=== PATIENT | male | born 1945 | race Caucasian/White ===

== ENCOUNTER 2020-12-09 11:31 | Inpatient (IN) | payer OTHER, MEDICARE ==
[~2020-12-09] VITALS: Ht 185.4 cm; Wt 109.0 kg
[~2020-12-09 11:31] MED LIST: ANTIVERT25 MG PO; ATORVASTATIN CA80 MG PO; DOFETILIDE125 MCG PO; ELIQUIS5 MG PO; ISOSORBIDE MONO60 MG PO; LANTUS **100 UNITS/ SC; LASIX40 MG PO; LOPRESSOR50 MG PO; NITROQUIK SL0.4 MG SL; NOVOLOG VI100 UNIT/1 SC; PLAVIX75 MG PO; TYLENOL #31 EACH PO; ULTRAM50 MG PO; VALSARTAN160 MG PO
[2020-12-09 12:17] LABS: BASOPHIL 0.3 % (0-2); EOSINOPHIL 0.6 % (0-7); HCT 35.8 % (42.0-52.0); HGB 11.6 g/dl (13.2-18.0); LYMPHOCYTE 15.5 % (15-48); MCH 28.8 pg (25.0-31.0); MCHC 32.4 g/dL (32.0-36.0); MCV 88.8 fL (78.0-100.0); MONOCYTE 5.7 % (0-12); MPV 10.7 fL (6.0-9.5); NEUTROPHIL 77.4 % (41-80); NRBC 0; PLT 302 K/uL (150-400); RBC 4.03 M/uL (4.70-6.00); RDW 14.5 % (11.5-14.0); WBC 15.3 K/uL (4.0-10.5)
[2020-12-09 12:36] LABS: ALBUMIN 2.3 g/dL (3.4-5.0); BILIRUBIN - TOTAL 0.8 mg/dL (0.2-1.0); BUN/CREAT RATIO (CALC) 11.7 RATIO; CREATININE 1.45 mg/dL (0.67-1.17); GLOBULIN (CALCULATION) 4.3 g/dL; POTASSIUM 3.8 mmol/L (3.5-5.1); TOTAL PROTEIN 6.6 g/dL (6.4-8.2)
[2020-12-09 17:16] LABS: BILIRUBIN NEGATIVE (NEGATIVE); BLOOD TRACE-INTACT Ery/uL (NEGATIVE); CLARITY CLEAR (CLEAR); COLOR YELLOW (YELLOW); GLUCOSE (U) 1+ mg/dL (NORMAL); LEUKOCYTES NEGATIVE Leu/uL (NEGATIVE); NITRITE NEGATIVE (NEGATIVE); PROTEIN TRACE (LOW) mg/dL (NEGATIVE); SPECIFIC GRAVITY 1.015 (1.001-1.030); UROBILINOGEN 0.2 mg/dL (0.2-1.0)
[2020-12-09 17:22] LABS: SQUAMOUS EPITHELIAL CELLS RARE; URINARY WBC RARE
[2020-12-09] MEDS ORDERED: SYNTHROID75 MCG PO (18:14)
[2020-12-09] MEDS ORDERED: ISOSORBIDE MONO60 MG PO (18:15)
[2020-12-09] MEDS ORDERED: CLARITIN10 MG PO (18:15)
[2020-12-10 04:38] LABS: BASOPHIL 0.5 % (0-2); EOSINOPHIL 1.4 % (0-7); HCT 31.9 % (42.0-52.0); HGB 10.2 g/dl (13.2-18.0); LYMPHOCYTE 21.1 % (15-48); MCH 28.6 pg (25.0-31.0); MCV 89.4 fL (78.0-100.0); MONOCYTE 7.1 % (0-12); MPV 10.3 fL (6.0-9.5); NEUTROPHIL 69.2 % (41-80); NRBC 0; PLT 257 K/uL (150-400); RBC 3.57 M/uL (4.70-6.00); RDW 14.5 % (11.5-14.0); WBC 13.2 K/uL (4.0-10.5)
[2020-12-10 04:57] LABS: BUN 15 mg/dL (7-18); BUN/CREAT RATIO (CALC) 10.4 RATIO; C-REACTIVE PROTEIN >18.00 mg/dL (<=0.90); CHLORIDE 106 mmol/L (98-107); CO2 (BICARBONATE) 29 mmol/L (21-32); CREATININE 1.44 mg/dL (0.67-1.17); GLUCOSE 117 mg/dL (74-106); POTASSIUM 3.3 mmol/L (3.5-5.1)
--- NOTE | 2020-12-10 06:39 | NUR ---
PTS WOUND DRESSING WAS FALLING OFF; CLEANSED AREA WITH BETADINE & RE-WRAPPED WITH CURLEX & ROSLYN. PT REPORTS AREA RELIEVED TO A SMALL DEGREE WITH LORTAB & RE-DRESSING. MONITORING. PAIN WAS 9/10 PRIOR.
[2020-12-10 10:46] LABS: BILIRUBIN NEGATIVE (NEGATIVE); BLOOD 2+ Ery/uL (NEGATIVE); CLARITY CLEAR (CLEAR); COLOR YELLOW (YELLOW); GLUCOSE (U) NORMAL (NORMAL); LEUKOCYTES NEGATIVE Leu/uL (NEGATIVE); NITRITE NEGATIVE (NEGATIVE); PROTEIN NEGATIVE (NEGATIVE); UROBILINOGEN 0.2 mg/dL (0.2-1.0)
[2020-12-10 10:53] LABS: BACTERIA TRACE
[2020-12-12 06:53] LABS: BASOPHIL 0.6 % (0-2); EOSINOPHIL 4.2 % (0-7); HCT 32.6 % (42.0-52.0); HGB 10.4 g/dl (13.2-18.0); LYMPHOCYTE 22.4 % (15-48); MCH 28.3 pg (25.0-31.0); MCHC 31.9 g/dL (32.0-36.0); MCV 88.6 fL (78.0-100.0); MONOCYTE 6.1 % (0-12); MPV 10.4 fL (6.0-9.5); NEUTROPHIL 66.2 % (41-80); NRBC 0; PLT 300 K/uL (150-400); RBC 3.68 M/uL (4.70-6.00); RDW 14.6 % (11.5-14.0); WBC 13.9 K/uL (4.0-10.5)
[2020-12-12 07:19] LABS: C-REACTIVE PROTEIN 16.7 mg/dL (<=0.90); CREATININE 1.12 mg/dL (0.67-1.17); POTASSIUM 2.8 mmol/L (3.5-5.1)
--- NOTE | 2020-12-12 16:27 | NUR ---
12/12/20 1400 ORDER RECEIVED FOR PICC LINE PLACEMENT. RISKS AND BENEFITS EXPLAINED. CONSENT SIGNED. PT'S LEFT UPPER ARM BASILIC VEIN VISUALIZED USING THE SITE RITE 6 ULTRA MACHINE. PT THEN PREPPED AND DRAPED IN STERILE FASHION. THE AREA WAS CLEANSED WITH CHLORAPREP. THE AREA WAS NUMBED WITH 1CC OF 1% LIDOCAINE. A 21GA NEEEDLE WAS USED. GOOD BLOOD RETURN. THE GUIDE WIRE THREADED EASILY. THE NEEDLE WAS REMOVED AND THE SHEATH WAS PLACED OVER THE WIRE. THE WIRE WAS THEN REMOVE AND A CAP WAS PLACED ON THE END. THE PT WAS MEASURED FOR THE PICC PLACEMENT. PICC WAS TRIMMED AT 52 CM AND FLUSHED. THE INTRODUCER WAS REMOVED AND THE PICC CATHETER WAS GUIDED INTO POSITION. THE SHEATH WAS PEELED BACK. A STERILE BIOPATCH WAS PLACED AT THE INSERTION SITE. A STAT LOCK WAS PLACED ON. A STERILE TEGADERM WAS PLACED OVER THE PICC LINE. A STAT PORTABLE CHEST XRAY WAS OBTAINED. PER RADIOLOGIST THE PICC LINE IS IN THE SVC. THE STYLET WAS REMOVED AND THE A CLEAR CAP WAS FLUSHED AND PLACED ON THE END. PT HAS A 4FR SINGLE LUMEN POWER PICC. TRIMMED AT 52 CM, INSERTION 0 CM. GOOD BLOOD RETURN NOTED. REPORT TO No MABRY RN ON MED SURG.
[2020-12-13 05:54] LABS: BUN/CREAT RATIO (CALC) 6.5 RATIO; C-REACTIVE PROTEIN 12.6 mg/dL (<=0.90); CREATININE 1.08 mg/dL (0.67-1.17); POTASSIUM 3.3 mmol/L (3.5-5.1); VANCOMYCIN, TROUGH 17.4 ug/mL (10-20)
[2020-12-13 05:59] LABS: BASOPHIL 0.5 % (0-2); EOSINOPHIL 6.4 % (0-7); HCT 32.3 % (42.0-52.0); HGB 10.3 g/dl (13.2-18.0); LYMPHOCYTE 22.3 % (15-48); MCH 28.3 pg (25.0-31.0); MCHC 31.9 g/dL (32.0-36.0); MCV 88.7 fL (78.0-100.0); MPV 10.5 fL (6.0-9.5); NEUTROPHIL 63.3 % (41-80); NRBC 0; PLT 316 K/uL (150-400); RBC 3.64 M/uL (4.70-6.00); RDW 14.6 % (11.5-14.0); WBC 13.2 K/uL (4.0-10.5)
[2020-12-14 03:41] LABS: BASOPHIL 0.6 % (0-2); EOSINOPHIL 4.3 % (0-7); HCT 33.9 % (42.0-52.0); HGB 10.9 g/dl (13.2-18.0); LYMPHOCYTE 24.1 % (15-48); MCH 28.3 pg (25.0-31.0); MCHC 32.2 g/dL (32.0-36.0); MCV 88.1 fL (78.0-100.0); MONOCYTE 7.8 % (0-12); NEUTROPHIL 62.5 % (41-80); NRBC 0; PLT 351 K/uL (150-400); RBC 3.85 M/uL (4.70-6.00); RDW 14.6 % (11.5-14.0); WBC 15.2 K/uL (4.0-10.5)
[2020-12-14 04:03] LABS: BUN/CREAT RATIO (CALC) 5.4 RATIO; CREATININE 1.11 mg/dL (0.67-1.17); POTASSIUM 3.3 mmol/L (3.5-5.1)
--- NOTE | 2020-12-14 15:55 | NUR ---
KIMI FROM [facility] WITH ME. SHE ADVISED THAT DR. GONZALEZ, INFECTIOUS DISEASE, WILL ORDER THE IV ABX. IT SHOULD BE AT THE HOME ON FRIDAY. PT. WILL NEED TO FOLLOW UP WITH [facility] AND THEY WILL CALL PT. WITH AN APPT. [facility] STATED THAT I NEED TO TELL DR. PATTERSON THAT WITH THE DAPTAMYCIAN PT. WILL NEED TO STOP CHOLESTROL MEDICINE. AND THAT SHE NEEDS A BASELINE FOR A CK AND TO MONITOR LABS WHEN PT GOES HOME. ADVISED DR. PATTERSON OF ABOVE INRFORAMTION. HE IS CONCERNED WITH TAKING HIM OFF THE CHOLESTRO MEDICINE. HE WILL ORDER LABS IN THE MORNING FOR THE BASELINE CK.
--- NOTE | 2020-12-14 16:01 | NUR ---
TC WITH MRS. CHAVES SHE ADVISED THAT THE HOSPITAL BED WILL BE DELIVERED IN THE AM AND THE / HAS BEEN DELIVERED TODAY. ADVISED HER THAT THE IV ABX WILL BE DELIVERED TO THE HOME WHEN APPROVED.
--- NOTE | 2020-12-14 16:38 | NUR ---
PATIENT'S DAUGHTER LAURA CALLED TO SAY SHE HAS TALKED TO PATIENT'S . STATES [facility] AND [facility] ANTIB[facility]OTICS HAVE BEEN APPROVED AND ORDERED AND THAT NO ONE HAS ORDERED A BONE CX. ADVISED LAURA THAT BONE CX HAS BEEN ORDERED BY [facility]IC[facility], NOT [facility]. LAURA ALSO STATED THAT IT IS WISHES OF FAMILY FOR PATIENT TO GO HOME WITH IV ANTIBIOTICS ONLY AND DISREGARD PROCEDURE FOR BONE CX. ADVISED DR PATTERSON OF PHONE CALL
[2020-12-15 04:36] LABS: BUN/CREAT RATIO (CALC) 5.6 RATIO; C-REACTIVE PROTEIN 9.7 mg/dL (<=0.90); CREATININE 1.07 mg/dL (0.67-1.17); POTASSIUM 3.5 mmol/L (3.5-5.1)
[2020-12-15 04:56] LABS: BASOPHIL 0.6 % (0-2); EOSINOPHIL 6.6 % (0-7); HCT 32.3 % (42.0-52.0); HGB 10.5 g/dl (13.2-18.0); LYMPHOCYTE 26.4 % (15-48); MCH 28.9 pg (25.0-31.0); MCHC 32.5 g/dL (32.0-36.0); MONOCYTE 7.2 % (0-12); MPV 10.2 fL (6.0-9.5); NEUTROPHIL 58.5 % (41-80); NRBC 0; PLT 358 K/uL (150-400); RBC 3.63 M/uL (4.70-6.00); RDW 14.7 % (11.5-14.0); WBC 12.1 K/uL (4.0-10.5)
--- NOTE | 2020-12-15 13:28 | NUR ---
SPOKE WITH STACIA AT [facility]. HE IS TO DELIVER A WOUND VAC. PAPERWORK HAS BEEN FAXED TO [facility]. [phone]. TC FROM [facility] SHE IS TO CONTACT [facility] TO DELIVER THE ABX AND SUPPLIES TO THE HOME. TC FROM [facility] AT [facility]. SHE HAS SPOKEN WITH [facility]. [facility] WILL ADVISE WHEN THE ABX HAVE BEEN DELIVERED.
--- NOTE | 2020-12-15 16:24 | NUR ---
1530 WOUND VAC PLACED TO THE LEFT HEEL WITH OUT ANY PROBLEMS. CARETENDERS WILL FOLLOW AT HOME WITH THE DRESSING CHANGES AND THE IV ANTIBOTICS.
== END 2020-12-15 17:45 | disposition home health service (06) | DRG 623 ==
LOC: FER 11:31 → FMS 13:36
PROVIDERS: Allergy & Immunology Allergy; Internal Medicine; ADMIT Internal Medicine
PROC: 02HV33Z Insertion of Infusion Device into Superior Vena Cava, Percutaneous Approach (ICD-10-PCS; 2020-12-12)
PROC: 0KBV0ZZ Excision of Right Foot Muscle, Open Approach (ICD-10-PCS; 2020-12-13)
PROC: 0KBV0ZZ Excision of Right Foot Muscle, Open Approach (ICD-10-PCS; principal; 2020-12-15)
DX: E11.69 Type 2 diabetes mellitus with other specified complication (principal); M86.9 Osteomyelitis, unspecified; L97.419 Non-pressure chronic ulcer of right heel and midfoot with unspecified severity; E11.52 Type 2 diabetes mellitus with diabetic peripheral angiopathy with gangrene; I96 Gangrene, not elsewhere classified; N17.9 Acute kidney failure, unspecified; Z20.822 Contact with and (suspected) exposure to COVID-19; I48.0 Paroxysmal atrial fibrillation; E11.40 Type 2 diabetes mellitus with diabetic neuropathy, unspecified; E11.22 Type 2 diabetes mellitus with diabetic chronic kidney disease; N18.2 Chronic kidney disease, stage 2 (mild); I25.10 Atherosclerotic heart disease of native coronary artery without angina pectoris; I12.9 Hypertensive chronic kidney disease with stage 1 through stage 4 chronic kidney disease, or unspecified chronic kidney disease; E03.9 Hypothyroidism, unspecified; K21.9 Gastro-esophageal reflux disease without esophagitis; E11.621 Type 2 diabetes mellitus with foot ulcer; Z79.01 Long term (current) use of anticoagulants; Z79.02 Long term (current) use of antithrombotics/antiplatelets; Z79.890 Hormone replacement therapy; Z79.899 Other long term (current) drug therapy; Z79.4 Long term (current) use of insulin; Z82.3 Family history of stroke; Z91.041 Radiographic dye allergy status; Z88.1 Allergy status to other antibiotic agents; Z88.8 Allergy status to other drugs, medicaments and biological substances; Z91.040 Latex allergy status; Z98.890 Other specified postprocedural states; Z95.820 Peripheral vascular angioplasty status with implants and grafts
CPT/HCPCS: 36415; 70450; 71045; 73700; 73721; 80048; 80053; 80202; 81001; 82550; 82962; 83036; 83605; 83880; 84145; 85025; 86140; 87040; 87070; 87077; 87186; 87205; 97162; 97166; 97530-GP; 97535; C1751; J0878; J1335; J1642; J1815; J2543; J3370; J7030; J7050; U0002